=== PATIENT | male | born 1955 | race Caucasian/White ===

== ENCOUNTER 2020-07-14 18:39 | Inpatient (IN) | payer OTHER, SELFPAY ==
[2020-07-14] MEDS ORDERED: Dextrose 5% in Water 1,000 ML IV PRN (22:19)
[2020-07-14] MEDS ORDERED: Ondansetron ODT 4 MG TAB PO PRN (22:19)
[2020-07-14] MEDS ORDERED: hydrALAZINE 20 MG/ML VIAL SLOW IVP PRN (22:19)
[2020-07-14] MEDS ORDERED: Ondansetron PF 4 MG/2 ML Vial IVP PRN (22:19)
[2020-07-14] MEDS ORDERED: Dextrose 50% Abboject 50 ML SYRINGE SLOW IVP PRN (22:19)
[2020-07-14] MEDS ORDERED: Insulin Regular 300 UNITS/3 ML VIAL SC PRN (22:19)
[2020-07-14] MEDS ORDERED: Rib Fracture Protocol PO SCH (22:30)
[2020-07-14 22:56] VITALS: BMI 31.6
[2020-07-14] MEDS: Ibuprofen 800 MG TAB PO SCH (23:23)
[2020-07-14] MEDS: traMADol HCl 50 MG TAB PO SCH (23:24)
[2020-07-14] MEDS: Acetaminophen 500 MG TAB PO SCH (23:24)
[2020-07-15] MEDS: Cyclobenzaprine 10 MG TAB PO PRN (02:32)
[2020-07-15 05:00] LABS: SARS-CoV-2 PCR by NAA Not Detected (NotDetected)
[2020-07-15] MEDS: Ibuprofen 800 MG TAB PO SCH (05:11)
[2020-07-15] MEDS: Acetaminophen 500 MG TAB PO SCH ×2 (05:11→11:53)
[2020-07-15] MEDS: traMADol HCl 50 MG TAB PO SCH ×4 (05:12→23:48)
[2020-07-15] MEDS ORDERED: Ibuprofen 600 MG TAB PO PRN (08:22)
[2020-07-15] MEDS: Famotidine 20 MG TAB PO SCH ×2 (09:02→20:12)
[2020-07-15] MEDS: Gabapentin 300 MG CAP PO SCH ×3 (09:02→20:12)
[2020-07-15] MEDS: Polyethylene Glycol 3350 17 GM Packet PO SCH ×2 (09:03→09:04)
[2020-07-15] MEDS: Nitrofurantoin Monohyd/M-Cryst 100 MG CAP PO SCH ×2 (09:03→20:12)
[2020-07-15] MEDS: Senokot S 8.6-50 MG TAB PO SCH ×2 (09:05→20:13)
[2020-07-15] MEDS: Insulin Regular 300 UNITS/3 ML VIAL SC PRN ×2 (12:00→17:49)
[2020-07-15] MEDS ORDERED: Acetaminophen/Codeine 30-300mg Tablet PO PRN (15:33)
[2020-07-15] MEDS: metFORMIN 500 MG TAB PO SCH (15:34)
[2020-07-15] MEDS: Acetaminophen 325 MG TAB PO SCH ×2 (17:45→23:47)
[2020-07-16] MEDS: Acetaminophen 325 MG TAB PO SCH ×4 (06:12→23:52)
[2020-07-16] MEDS: traMADol HCl 50 MG TAB PO SCH ×4 (06:12→23:53)
[2020-07-16] MEDS: Insulin Regular 300 UNITS/3 ML VIAL SC PRN ×3 (06:18→17:20)
[2020-07-16] MEDS: Polyethylene Glycol 3350 17 GM Packet PO SCH (08:42)
[2020-07-16] MEDS: Atorvastatin Calcium 20 MG TAB PO SCH (08:43)
[2020-07-16] MEDS: Atenolol 50 MG TAB PO SCH (08:43)
[2020-07-16] MEDS: metFORMIN 500 MG TAB PO SCH ×2 (08:43→17:17)
[2020-07-16] MEDS: Famotidine 20 MG TAB PO SCH ×2 (08:43→20:49)
[2020-07-16] MEDS: Gabapentin 300 MG CAP PO SCH ×3 (08:44→20:49)
[2020-07-16] MEDS: Hydrochlorothiazide 25 MG TAB PO SCH (08:44)
[2020-07-16] MEDS: Senokot S 8.6-50 MG TAB PO SCH ×2 (08:44→20:51)
[2020-07-16] MEDS: Nitrofurantoin Monohyd/M-Cryst 100 MG CAP PO SCH (08:44)
[2020-07-16] MEDS ORDERED: Acetaminophen/Codeine 30-300mg Tablet PO PRN (11:24)
[2020-07-16 11:49] LABS: #Eosinphils 0.1 thou/uL (0.0-0.7); #Lymphocytes 1.6 thou/uL (1.20-3.40); #Monocytes 0.9 thou/uL (0.11-0.59); #Neutrophils 10.7 thou/uL (1.40-6.50); %Basophils 0.1 % (0.0-1.0); %Eosinophils 0.5 % (0.0-10.0); %Lymphocytes 12.2 % (21.0-51.0); %Monocytes 6.9 % (0.0-10.0); %Neutrophils 80.2 % (42.0-75.0); Hemoglobin 13.3 g/dL (14.0-18.0); Mean Corpuscular HGB CONC 32.2 g/dL (32.0-36.0); Mean Corpuscular Hemoglobin 30.9 pg (27.0-31.0); Mean Corpuscular Volume 95.9 fL (78.0-98.0); Mean Platelet Volume 6.8 fL (7.4-10.4); Platelet Count 275 thou/uL (130-400); RBC Distribution Width 12.9 % (11.5-14.5); Red Blood Cell (RBC) Count 4.29 mill/uL (4.70-6.10); White Blood Cell (WBC) Count 13.4 thou/uL (4.8-10.8)
[2020-07-16 11:55] LABS: Hemoglobin A1c 7.6 % (4.0-6.0)
[2020-07-16 12:08] LABS: Anion Gap 14 mmol/L (10-20); BUN (Urea Nitrogen) 15 mg/dL (8.4-25.7); Calc. Creatinine Clearance 127 mL/min (70-130); Calcium 9.2 mg/dL (7.8-10.44); Carbon Dioxide 34 mmol/L (23-31); Chloride 95 mmol/L (98-107); Glucose 202 mg/dL (80-115); Magnesium 1.7 mg/dL (1.6-2.6); Phosphorus 3.5 mg/dL (2.3-4.7); Potassium 5.1 mmol/L (3.5-5.1); Sodium 138 mmol/L (136-145)
[2020-07-16] MEDS ORDERED: Magnesium Sulfate 3 GM in Sodium Chloride 0.9% 100 ML IVPB SCH (14:30)
[2020-07-16] MEDS: Acetaminophen/Codeine 30-300mg Tablet PO PRN ×2 (14:44→20:50)
[2020-07-16] MEDS: Lidocaine 5% Patch TD SCH (15:18)
[2020-07-16] MEDS: Cyclobenzaprine 10 MG TAB PO PRN (19:22)
[2020-07-16] MEDS: Magnesium Oxide 400 MG TAB PO SCH (20:49)
[2020-07-17] MEDS: traMADol HCl 50 MG TAB PO SCH ×4 (05:13→23:00)
[2020-07-17] MEDS: Acetaminophen 325 MG TAB PO SCH (05:13)
[2020-07-17] MEDS: Insulin Regular 300 UNITS/3 ML VIAL SC PRN ×3 (05:14→17:04)
[2020-07-17] MEDS: metFORMIN 500 MG TAB PO SCH ×2 (08:48→17:01)
[2020-07-17] MEDS: Polyethylene Glycol 3350 17 GM Packet PO SCH (08:48)
[2020-07-17] MEDS: Hydrochlorothiazide 25 MG TAB PO SCH (08:49)
[2020-07-17] MEDS: Magnesium Oxide 400 MG TAB PO SCH ×2 (08:49→20:02)
[2020-07-17] MEDS: Gabapentin 300 MG CAP PO SCH ×3 (08:49→20:02)
[2020-07-17] MEDS: Senokot S 8.6-50 MG TAB PO SCH ×2 (08:49→20:02)
[2020-07-17] MEDS: Atenolol 50 MG TAB PO SCH (08:50)
[2020-07-17] MEDS: Atorvastatin Calcium 20 MG TAB PO SCH (08:50)
[2020-07-17] MEDS: Enoxaparin Sodium 40 MG/0.4 ML SYRINGE SC SCH (08:52)
[2020-07-17] MEDS: Lidocaine 5% Patch TD SCH (08:55)
[2020-07-17] MEDS: Acetaminophen 500 MG TAB PO SCH ×3 (11:21→22:59)
[2020-07-17] MEDS: Ibuprofen 200 MG TAB PO SCH ×2 (14:15→20:02)
[2020-07-17] MEDS: Cyclobenzaprine 10 MG TAB PO PRN (20:02)
[2020-07-17] MEDS ORDERED: Transdermal Patch Removal TOP SCH (21:00)
[2020-07-18] MEDS: Acetaminophen 500 MG TAB PO SCH ×2 (05:28→11:09)
[2020-07-18] MEDS: Ibuprofen 200 MG TAB PO SCH ×2 (05:28→13:59)
[2020-07-18] MEDS: traMADol HCl 50 MG TAB PO SCH ×2 (05:29→11:09)
[2020-07-18] MEDS: Polyethylene Glycol 3350 17 GM Packet PO SCH (08:08)
[2020-07-18] MEDS: metFORMIN 500 MG TAB PO SCH (08:08)
[2020-07-18] MEDS: Gabapentin 300 MG CAP PO SCH ×2 (08:09→14:00)
[2020-07-18] MEDS: Atenolol 50 MG TAB PO SCH (08:09)
[2020-07-18] MEDS: Senokot S 8.6-50 MG TAB PO SCH (08:10)
[2020-07-18] MEDS: Enoxaparin Sodium 40 MG/0.4 ML SYRINGE SC SCH (08:10)
[2020-07-18] MEDS: Magnesium Oxide 400 MG TAB PO SCH (08:10)
[2020-07-18] MEDS: Atorvastatin Calcium 20 MG TAB PO SCH (08:10)
[2020-07-18] MEDS: Hydrochlorothiazide 25 MG TAB PO SCH (08:10)
[2020-07-18] MEDS: Lidocaine 5% Patch TD SCH (08:56)
[2020-07-18] MEDS: Insulin Regular 300 UNITS/3 ML VIAL SC PRN (11:12)
[2020-07-18 11:51] VITALS: BP 133/88; TEMP 97.8
[2020-07-18] MEDS: Cyclobenzaprine 10 MG TAB PO PRN (15:20)
[2020-07-19] MEDS ORDERED: Ibuprofen 200 MG TAB PO PRN (08:46)
== END 2020-07-18 15:30 | disposition home or self-care (01) | DRG 206 ==
LOC: SJJU 22:07 → OBSVTOIN 07-16 14:29
PROVIDERS: ADMIT Surgery; ATTEND Surgery
DX: S27.892A Contusion of other specified intrathoracic organs, initial encounter (principal); S22.41XA Multiple fractures of ribs, right side, initial encounter for closed fracture; S22.22XA Fracture of body of sternum, initial encounter for closed fracture; J98.11 Atelectasis; Z20.822 Contact with and (suspected) exposure to COVID-19; J44.9 Chronic obstructive pulmonary disease, unspecified; E11.9 Type 2 diabetes mellitus without complications; I10 Essential (primary) hypertension; E78.5 Hyperlipidemia, unspecified; E78.00 Pure hypercholesterolemia, unspecified; R09.02 Hypoxemia; F17.210 Nicotine dependence, cigarettes, uncomplicated; Z79.84 Long term (current) use of oral hypoglycemic drugs; V49.40XA Driver injured in collision with unspecified motor vehicles in traffic accident, initial encounter; Z79.899 Other long term (current) drug therapy; Z99.81 Dependence on supplemental oxygen
CPT/HCPCS: 36415; 36416; 71045; 80048; 83036; 83735; 84100; 85025; 87070; 87086; 87205; 87635; 94640; 94660; G0378; J1650; J1815; J7620; U0003; U0005